=== PATIENT | male | born 1990 | race African-American/Black ===

== ENCOUNTER 2019-05-24 19:02 | Emergency (ER) | payer BC, MEDICAID ==
[2019-05-24] MEDS ORDERED: NORMAL SALINE 1000 ML 1,000 ML IV ONE (19:11)
[2019-05-24] MEDS ORDERED: PROCHLORPERAZINE EDISYLATE INJ 10 MG/2 ML VIAL IV ONE (19:11)
[2019-05-24] MEDS ORDERED: KETOROLAC TROMETHAMINE INJ/PF 30 MG/1 ML SDV IV ONE (19:12)
[2019-05-24] MEDS ORDERED: DIPHENHYDRAMINE HCL 50 MG/ML VIAL IV ONE (19:12)
--- NOTE | 2019-05-24 19:13 | ER Document Report ---
ED Medical Screen (RME) - General Chief Complaint: Headache Stated Complaint: HEADACHE Time Seen by Provider: 05/24/19 19:08 Primary Care Provider: ZBIGNIEW CALDERÓN MD [Primary Care Provider] - Follow up as needed Mode of Arrival: Ambulatory Information source: Patient Notes: Patient presents complaining of left-sided headache pain that is been off and on for the past 5 days. Patient does report occasional photophobia and phonophobia. No fever or head injury, no nausea or vomiting. I have greeted and performed a rapid initial assessment of this patient. A co mprehensive ED assessment and evaluation of the patient, analysis of test results and completion of the medical decision making process will be conducted by additional ED providers. - Related Data Allergies/Adverse Reactions: No Known Allergies Allergy (Unverified 05/24/19 19:11) Physical Exam - Vital signs Vitals: Temp Pulse Resp BP Pulse Ox 98.2 F 93 16 156/82 H 100 05/24/19 19:05 05/24/19 19:05 05/24/19 19:05 05/24/19 19:05 05/24/19 19:05 - Neurological Neuro grossly intact: Yes [place] Coma Scale Eye Opening: Spontaneous [place] Coma Scale Verbal: Oriented [place] Coma Scale Motor: Obeys Commands [place] Coma Scale Total: 15 Course - Vital Signs Vital signs: Temp Pulse Resp BP Pulse Ox 98.2 F 93 16 156/82 H 100 05/24/19 19:05 05/24/19 19:05 05/24/19 19:05 05/24/19 19:05 05/24/19 19:05 Doctor's Discharge - Discharge Referrals: ZBIGNIEW CALDERÓN MD [Primary Care Provider] - Follow up as needed
[2019-05-24] MEDS ORDERED: ONDANSETRON HCL INJ/PF 4 MG/2 ML SDV IV ONE (19:46)
--- NOTE | 2019-05-24 20:09 | ER Document Report ---
ED Headache - General Chief Complaint: Headache Stated Complaint: HEADACHE Time Seen by Provider: 05/24/19 19:08 Primary Care Provider: ZBIGNIEW CALDERÓN MD [Primary Care Provider] - Follow up as needed Mode of Arrival: Ambulatory TRAVEL OUTSIDE OF THE [place] IN LAST 30 DAYS: No - HPI Notes: 28-year-old male to the emergency department with complaints of left-sided headache that is been going on for the past 5 days. He states it comes and goes but it seemingly is consistently there is a dull ache. He states that he has some occasional photophobia with it. He also admits to a little bit of nausea. He denies any vomiting. He states that he also has a painful left upper tooth. He is not really sure if they are related. However he states that sometimes the tooth bothers him enough that he really can eat solid foods. He denies any fevers or chills. He denies any neck pain. He denies any facial swelling. He denies any drooling. Headache was gradual in onset and is not the worst ever. He states he has a history of "migraines" and those headaches are much worse than this 1. He states that he did take 1 dose of Tylenol on Monday (5 days ago) with relief but has not taken any since. - Related Data Allergies/Adverse Reactions: No Known Allergies Allergy (Unverified 05/24/19 19:11) Past Medical History - General Information source: Patient - Social History Smoking Status: Current Every Day Smoker Chew tobacco use (# tins/day): No Frequency of alcohol use: None Drug Abuse: Marijuana Lives with: Spouse/Significant other Family History: Reviewed & Not Pertinent Patient has suicidal ideation: No Patient has homicidal ideation: No Review of Systems - Review of Systems Constitutional: denies: Chills, Fever EENT: See HPI, Dental problem, Other - Photophobia Cardiovascular: denies: Chest pain, Palpitations, Orthopnea, Dyspnea, Syncope, Dizziness, Lightheaded Respiratory: denies: Cough, Short of breath Gastrointestinal: Nausea. denies: Abdominal pain, Diarrhea, Vomiting Genitourinary: No symptoms reported Musculoskeletal: denies: Neck pain Skin: No symptoms reported Hematologic/Lymphatic: No symptoms reported Neurological/Psychological: No symptoms reported -: Yes All other systems reviewed and negative Physical Exam - Vital signs Vitals: Temp Pulse Resp BP Pulse Ox 98.2 F 93 16 156/82 H 100 05/24/19 19:05 05/24/19 19:05 05/24/19 19:05 05/24/19 19:05 05/24/19 19:05 Interpretation: Normal - General General appearance: Appears well, Alert - HEENT Head: Normocephalic, Atraumatic Eyes: Normal Pupils: PERRL Ears: Normal External canal: Normal Tympanic membrane: Normal Sinus: Normal Nasal: Normal Mouth/Lips: Caries - Tooth #16 is broken and very tender to palpation. There is no gum erythema or edema to suggest kimi abscess. There is no Dank's angina. Airway is grossly patent. There is no drooling. There is no voice change.. No: Angioedema Pharynx: Normal. No: Peritonsillar abscess, Uvular edema, Potential airway comprom. Neck: Normal, Supple. No: Lymphadenopathy, Meningismus - Respiratory Respiratory status: No respiratory distress Chest status: Nontender Breath sounds: Normal Chest palpation: Normal - Cardiovascular Rhythm: Regular Heart sounds: Normal auscultation Murmur: No - Back Back: Normal, Nontender - Extremities General upper extremity: Normal inspection, Nontender, Normal color, Normal ROM, Normal temperature General lower extremity: Normal inspection, Nontender, Normal color, Normal ROM, Normal temperature, Normal weight bearing. No: Antonieta's sign - Neurological Neuro grossly intact: Yes Cognition: Normal Orientation: AAOx4 [place] Coma Scale Eye Opening: Spontaneous [place] Coma Scale Verbal: Oriented [place] Coma Scale Motor: Obeys Commands [place] Coma Scale Total: 15 Speech: Normal Cranial nerves: Normal. No: Facial palsy, Forehead sparing, Gaze palsy, Sensory deficit, Tongue deviation Cerebellar coordination: Normal. No: Gait ataxia Motor strength normal: LUE, RUE, LLE, RLE Additional motor exam normals: Equal account review specialist. No: Pronator drift Sensory: Normal - Psychological Associated symptoms: Normal affect, Normal mood - Skin Skin Temperature: Warm Skin Moisture: Dry Skin Color: Normal Course - Re-evaluation Re-evalutation: 05/24/19 20:28 Progress: ROunded on patient. He is feeling better. Pain has decreased. Will discharge home with Fioricet, zofran, and ABx for dental caries. Patient agrees with the plan. Encouraged to return if worse. - Vital Signs Vital signs: Temp Pulse Resp BP Pulse Ox 98.2 F 93 16 156/82 H 100 05/24/19 19:05 05/24/19 19:05 05/24/19 19:05 05/24/19 19:05 05/24/19 19:05 Discharge - Discharge Clinical Impression: Pain, dental, Dental caries Headache Qualifiers: Headache type: unspecified Headache chronicity pattern: acute headache Intractability: not intractable Qualified Code(s): R51 - Headache Condition: Stable Disposition: HOME, SELF-CARE Instructions: Toothache ([facility]), Headache ([facility]) Additional Instructions: PUSH FLUIDS. TAKE MEDICINES PRESCRIBED. RETURN IF WORSE. FOLLOW UP [facility]. Prescriptions: Butalb/Acetaminophen/Caffeine [Fioricet (50-325-40 mg) Tablet] 1 tab PO Q4HP PRN #12 tab PRN Reason: Ondansetron [Zofran Odt 4 mg Tablet] 1 - 2 tab PO Q4HP PRN #10 tab.rapdis PRN Reason: Amoxicillin 1 tab PO TID #30 tab Referrals: ZBIGNIEW CALDERÓN MD [Primary Care Provider] - Follow up in 3-5 days [facility] [Provider Group] - Follow up as needed
[2019-05-24] MEDS ORDERED: BUTALB/ACETAMINOPHEN/CAFFEINE 1 TAB EACH PO ONE (20:28)
[2019-05-24 20:47] VITALS: BP 132/84
== END 2019-05-24 20:47 | disposition home or self-care (01) ==
LOC: ER 19:02
DX: K02.9 Dental caries, unspecified (principal); R51 Headache; H53.149 Visual discomfort, unspecified; R11.0 Nausea; K08.89 Other specified disorders of teeth and supporting structures; F17.200 Nicotine dependence, unspecified, uncomplicated; F12.10 Cannabis abuse, uncomplicated; Z86.69 Personal history of other diseases of the nervous system and sense organs
CPT/HCPCS: J3490; J1885; J2405; J7030; 96361; 96374; 96375; 99283

== ENCOUNTER 2019-06-01 20:53 | Emergency (ER) | payer SELFPAY ==
[2019-06-01 21:02] VITALS: BP 136/80
[2019-06-01] MEDS ORDERED: IBUPROFEN 800 MG TABLET PO ONE (21:10)
[2019-06-01] MEDS ORDERED: LIDOCAINE 2% VISCOUS SOLN 15 ML UDCUP PO ONE (21:10)
[2019-06-01] MEDS ORDERED: ACETAMINOPHEN 325 MG TABLET PO ONE (21:10)
--- NOTE | 2019-06-01 21:14 | ER Document Report ---
HPI - HPI Time Seen by Provider: 06/01/19 21:07 Pain Level: 4 Notes: Patient is a 28-year-old male who presents to the ED complaining of left upper dental pain #15/161 week. He has not noticed any obvious abscess or purulent discharge. Patient states that he is still able to eat and drink, but does have a decreased p.o. intake due to the pain. He has tried some [id number] meds with minimal relief. He is still finishing his amoxicillin. he has not scheduled an appointment with a dentist as of yet. No other concerns or complaints. Denies any headache, fever, head injury, neck pain, hoarseness, drooling, URI, sore throat, chest pain, palpitations, syncope, cough, shortness of breath, wheeze, dyspnea, abdominal pain, nausea/vomiting/diarrhea, urinary retention, dysuria, hematuria, or rash. - ROS Systems Reviewed and Negative: Yes All other systems reviewed and negative - REPRODUCTIVE Reproductive: DENIES: : Past Medical History - Social History Smoking Status: Current Every Day Smoker Chew tobacco use (# tins/day): No Frequency of alcohol use: None Drug Abuse: None Family History: Reviewed & Not Pertinent Patient has suicidal ideation: No Patient has homicidal ideation: No Vertical Provider Document - CONSTITUTIONAL Agree With Documented VS: Yes Notes: PHYSICAL EXAMINATION: GENERAL: Well-appearing, well-nourished and in no acute distress. HEAD: Atraumatic, normocephalic. EYES: Pupils equal round and reactive to light, extraocular movements intact, sclera anicteric, conjunctiva are normal. ENT: Nares patent and without discharge. oropharynx clear without exudates. No tonsilar hypertrophy or erythema. Moist mucous membranes. No sinus tenderness. Uvula midline. No palatine shift. No tongue protrusion. No respiratory compromise. Mouth: Poor dentition. + severe decay and mild gingivitis. No obvious abscess or discharge noted. No facial swelling. + tenderness to tooth #15/16. NECK: Normal range of motion, supple without lymphadenopathy. No rigidity/meningismus. LUNGS: Breath sounds clear to auscultation bilaterally and equal. No wheezes rales or rhonchi. HEART: Regular rate and rhythm without murmurs, rubs, gallops. NEUROLOGICAL: Cranial nerves grossly intact. Normal speech, normal gait. PSYCH: Normal mood, normal affect. SKIN: Warm, Dry, normal turgor, no rashes or lesions noted. - INFECTION CONTROL TRAVEL OUTSIDE OF THE [place] IN LAST 30 DAYS: No Course - Re-evaluation Re-evalutation: 06/01/19 21:12 Patient is an afebrile, well-hydrated, 28-year-old male who presents to the ED with dental pain, suspect nerve root etiology versus infection. Vitals are acceptable. PE is otherwise unremarkable. No I&D, labs, or imaging warranted at this time based on H&P. Viscous lidocaine dispensed today. Tylenol/motrin given PO today. I will send him home with a prescription for clindamycin to begin after he finishes amoxicillin if he has new swelling. Low suspicion for any meningitis, sepsis, peritonsillar/pharyngeal abscess, respiratory compromise, Dank's, temporal arteritis, or other emergent systemic condition at this time. Patient is aware this condition can change from initial pr esentation and he needs to monitor symptoms closely. Conservative measures otherwise for symptoms. Call to schedule an appointment with a dentist for further evaluation and management. Recheck with your PCM this week as well. Return to the ED with any worsening/concerning symptoms otherwise as reviewed in discharge. Patient is in agreement. pt declined toradol shot. - Vital Signs Vital signs: Temp Pulse Resp BP Pulse Ox 97.9 F 62 16 136/80 H 99 06/01/19 21:00 06/01/19 21:00 06/01/19 21:00 06/01/19 21:00 06/01/19 21:00 Discharge - Discharge Clinical Impression: Pain, dental Condition: Stable Disposition: HOME, SELF-CARE Instructions: Toothache ([facility]), Clindamycin ([facility]) Additional Instructions: [place] and floss twice daily Maintain fluid intake Take antibiotics as directed Mouthwash, salt water gargles, peroxide rinse as needed Tylenol/ibuprofen as needed Recheck with PCM this week Call today/tomorrow and schedule an appointment with your dentist for further evaluation Return to the ED with any worsening symptoms and/or development of fever, headache, facial swelling, swelling of lips/tongue/throat, trouble swallowing, drooling, hoarseness, neck pain/stiffness, chest pain, palpitations, syncope, shortness of breath, trouble breathing, abdominal pain, n/v/d, numbness/tingling, or other worsening symptoms that are concerning to you. Prescriptions: Clindamycin HCl 300 mg PO TID #30 capsule Ibuprofen [Motrin 800 mg Tablet] 800 mg PO Q8H PRN #15 tab PRN Reason: Forms: Elevated Blood Pressure, Smoking Cessation Education Referrals: [facility] [Provider Group] - Follow up in 3-5 days
== END 2019-06-01 21:29 | disposition home or self-care (01) ==
LOC: ER 20:53
DX: K02.9 Dental caries, unspecified (principal); K05.10 Chronic gingivitis, plaque induced; K08.89 Other specified disorders of teeth and supporting structures; F17.200 Nicotine dependence, unspecified, uncomplicated
CPT/HCPCS: 99282; J3490